=== PATIENT | female | born 1965 | race Caucasian/White ===

== ENCOUNTER 2019-08-31 14:47 | Emergency (ER) | payer BC, SELFPAY ==
--- NOTE | ~2019-08-31 | XR_ITS ---
EXAMINATION: XR chest 2V 08/31/2019 15:47 INDICATION: Chest pain with inspiration PROCEDURE: 2 view chest COMPARISON: No prior studies for comparison. FINDINGS: The lungs are clear. The cardiomediastinal silhouette is within normal limits. There are no pleural effusions. There is no pneumothorax suspected. IMPRESSION: 1: NO ACUTE CARDIOPULMONARY DISEASE. Reviewed, dictated and finalized at location A.
[2019-08-31 14:51] VITALS: BP 158/90; PULSE 84; RESP 20; TEMP 36.7; O2SAT 100
--- NOTE | 2019-08-31 14:56 | ECG_ITS ---
Measurements Intervals [place] Rate: 89 P: 55 PA: 163 QRS: 9 QRSD: 78 T: 38 QT: 334 QTc: 407 Interpretive Statements SINUS RHYTHM BASELINE ARTIFACT- I, II, AVR, AVL, AVF NORMAL ECG Electronically Signed On 08-31-2019 16:44:13 CDT by Fredy Zavala D.O.
[2019-08-31] MEDS: ASPIRIN 81 MG CHEWABLE TABLET 324 MG PO (15:00)
--- NOTE | 2019-08-31 15:02 | ED.CHESTPAIN ---
HPI - Chest Pain General Chief Complaint: Chest Pain Stated Complaint: Chest Pain Time Seen by Provider: 08/31/19 14:50 Source: patient Mode of arrival: ambulatory Limitations: no limitations History of Present Illness HPI narrative: Patient is a 54-year-old female who presents for evaluation of chest pain. Pain began this morning when the patient awakened, described as a pressure over her chest, worse with deep inspiration. Patient has some mild nausea and shortness of breath that has now resolved. Actually, patient denies any chest pain currently in the room. Patient does report some mild right shoulder pain and pain in her right breast that is also resolved at this time. No shortness of breath at time of assessment. No fever, no cough, no lower extremity swelling, edema or rashes. No history of cardiac disease, hypertension or hyperlipidemia. No family history of heart attack. Patient is not a smoker. Related Data Home Medications Medication Instructions Recorded Confirmed No Home Medications 08/31/19 08/31/19 Allergies Allergy/AdvReac Type Severity Reaction Status Date / Time No Known Allergies Allergy Verified 08/31/19 14:55 Review of Systems Review of Systems: Narrative: CONSTITUTIONAL: Denies fever CARDIOVASCULAR: Denies chest pain currently RESPIRATORY: Denies cough or dyspnea. GASTROINTESTINAL: Denies abdominal pain SKIN: Denies rash MUSCULOSKELETAL: Denies back pain NEUROLOGIC: Denies headache PMFSH Past Medical History Medical History (Updated 08/31/19 @ 15:12 by Yadira Price MD) No pertinent past medical history Surgical History Surgical History (Updated 08/31/19 @ 15:12 by Yadira Price MD) H/O section S/P cholecystectomy Social History Social History (Updated 08/31/19 @ 15:12 by Yadira Price MD) Smoking status: Never smoker Alcohol intake: never Substance use: never Living arrangements: with family Gender identity (if verbalized by the patient): Female Exam Narrative: Exam Narrative: GENERAL: Awake, alert, conversant HEAD: Normocephalic, atraumatic. EYES: PERRLA and EOMI. ENT: Nares clear, no rhinorrhea or epistaxis. Mucous membranes moist. NECK: Supple. CHEST: No respiratory distress, breathing even and non labored, mild right chest point tenderness HEART: Regular rate, sinus rhythm ABDOMEN:Non distended, non tender EXTREMITIES: Normal range of motion. No edema. SKIN: Warm, dry, no rash. NEURO:No focal deficits. Alert and oriented x3 Course Vital Signs Vital signs: Vital Signs Temperature 36.7 C 08/31/19 14:51 Pulse Rate 84 08/31/19 14:51 Respiratory Rate 20 08/31/19 14:51 Blood Pressure 158/90 H 08/31/19 14:51 Pulse Oximetry 100 08/31/19 14:51 Temperature 36.7 C 08/31/19 14:51 Pulse Rate 80 08/31/19 17:39 Respiratory Rate 08/31/19 17:39 Blood Pressure 120/89 08/31/19 17:39 Pulse Oximetry 99 08/31/19 17:39 MDM - Chest Pain MDM Narrative Medical decision making narrative: Patient's EKG and labs are without significant high risk changes. Cardiac risk factors reviewed. Patient is felt low risk for ACS and reasonable for further risk stratification testing as an outpatient. Pain was not sudden or maximal or onset without tearing or ripping quality. No other signs or symptoms to suggest aortic dissection. A low risk well's criteria is noted, PE is felt to be unlikely. No pneumonia seen on evaluation today. Patient is felt to be a reasonable candidate for continued evaluation as an outpatient. Differential Diagnosis Differential diagnosis: Likely stable angina, unstable angina pectoris, atypical chest pain and chest pain Lab Data Attestation: I reviewed the patient's lab results. Result diagrams: 08/31/19 15:29 08/31/19 15:29 Labs: Lab Results 08/31/19 08/31/19 08/31/19 Range/Units 15: 15:29 15:29 WBC 6.0 (4.5-10.0) K/mm3 RBC 4.47 (4.2-5.4) M/mm3
[2019-08-31 15:31] VITALS: BP 139/95; PULSE 77; RESP 20; O2SAT 96
[2019-08-31 15:39] LABS: Basophils Absolute Auto 0.1 K/mm3 (0.0-0.1); Eosinophils Absolute Auto 0.1 K/mm3 (0-0.3); Eosinophils Percent Auto 0.8 % (0-4.4); Hematocrit 41.6 % (37.0-47.0); Hemoglobin 13.6 g/dL (12.0-15.0); Immature Granulocyte Absolute 0.01 K/mm3 (0.00-0.031); Immature Granulocyte Percent A 0.2 % (0-0.5); Lymphocytes Absolute Auto 1.58 K/mm3 (0.9-3.2); Lymphocytes Percent Auto 26.3 % (18.3-44.2); Mean Corpuscular HGB Conc 32.7 g/dl (32-36); Mean Corpuscular Hemoglobin 30.4 pg (26-34); Mean Corpuscular Volume 93.1 fl (80-100); Mean Platelet Volume 9.8 fl (7.4-10.4); Monocytes Absolute Auto 0.5 K/mm3 (0.1-0.6); Monocytes Percent Auto 8.3 % (2.6-8.5); Neutrophils Absolute Auto 3.8 K/mm3 (1.3-6.7); Neutrophils Percent Auto 63.4 % (45.5-73.1); Platelet Count Result 283 k/mm3 (150-375); Red Blood Count 4.47 M/mm3 (4.2-5.4); Red Cell Distribution Width 12.8 % (11.5-14.5)
[2019-08-31 15:51] LABS: Prothrombin Time 13.3 Seconds (11.1-14.7)
[2019-08-31 15:52] LABS: Partial Thromboplastin Time 32.9 SECONDS (22.3-36.8)
[2019-08-31 15:54] LABS: Blood Urea Nitrogen 8 mg/dL (7-17); Calcium 10.3 mg/dL (8.4-10.2); Carbon Dioxide 27 mmol/L (22-30); Chloride 104 mmol/L (98-107); Estimated CRCL calculation 65 ml/min; Estimated Glomerular Filt Rate > 60; Glucose 95 mg/dL (65-105); Potassium 4.2 mmol/L (3.4-5.0); Sodium 138 mmol/L (137-145)
[2019-08-31 16:04] LABS: Troponin I < 0.012 ng/mL (0.000-0.034)
[2019-08-31 17:33] LABS: D Dimer 0.45 ug/mL (<0.48)
[2019-08-31 17:39] VITALS: BP 120/89; PULSE 80; RESP 20; O2SAT 99
[2019-08-31 18:43] LABS: Troponin I < 0.012 ng/mL (0.000-0.034)
[2019-08-31 19:23] VITALS: BP 128/70; PULSE 80; RESP 20; TEMP 36.7; O2SAT 99
== END 2019-08-31 19:24 | disposition home or self-care (01) ==
PROVIDERS: Emergency Provider Emergency Medicine
DX: R07.89 Other chest pain (principal)
CPT/HCPCS: 36415; 71046; 80048; 84484; 85025; 85380; 85610; 85730; 93005; 99284; A9270

== ENCOUNTER 2024-08-28 08:13 | Emergency (ER) | payer OTHER, SELFPAY ==
--- NOTE | ~2024-08-28 | CT_ITS ---
CLINICAL INDICATION: Right flank pain COMPARISON: None TECHNIQUE: Multiple contiguous axial images of the abdomen and pelvis were performed without the admi nistration of intravenous contrast The dose-length product (DLP) was 1113 mGy-cm. Automated exposure control and iterative reconstruction technique were employed. FINDINGS/OBSERVATIONS: Visualized lower thorax: The bilateral lung bases are clear. The heart is of normal size, without pericardial effusion. Small hiatal hernia is present. Liver: Innumerable cystic foci within the liver, markedly distorting the liver contour. The liver is enlarged measuring 22 cm in longitudinal dimension. Gallbladder and biliary system: The gallbladder is surgically absent. Pancreas: Limited evaluation of the pancreas secondary to the lack of intravenous contrast. Spleen: The spleen demonstrates homogeneous attenuation and is not enlarged. Kidneys: Global enlargement of the right kidney with moderate hydronephrosis and hydroureter extendin g to the right UVJ where a 6 mm obstructing calculus is identified. The left kidney is unremarkable. Adrenal glands: Unremarkable. Gastrointestinal tract: Unremarkable Appendix: The appendix is not definitively visualized. However, no pericecal inflammatory change is identified suggest the presence of acute appendicitis. Vasculature: Unremarkable. Lymph nodes: Limited evaluation without intravenous contrast. Pelvic structures: The bladder is decompressed. The uterus is anteverted and anteflexed, and otherwise unremarkable. Body wall and musculoskeletal: Small fat-containing umbilical hernia. No significant degenerative disease within the lower thoracic or lumbosacral spine. IMPRESSION: Right-sided hydroureteronephrosis secondary to a 6 mm calculus within the right UVJ. Innumerable cysts within the liver, and hepatomegaly. Reviewed, dictated and finalized at location A.
--- NOTE | ~2024-08-28 | XR_ITS ---
Exam: Abdomen 1V HISTORY: Kidney stone, right UVJ COMPARISON: Reference is made to a CT examination of the abdomen and pelvis, performed approximately 1 hour earlier TECHNIQUE: Supine images of the abdomen FINDINGS: Bowel gas pattern is non-obstructive. There is no free air or deep sulci. Redemonstration of a 6 mm calculus within the right hemipelvis, presumably at the level of the right UVJ. Lung bases are unremarkable. Bones and soft tissues are unremarkable. IMPRESSION: Nonspecific, nonobstructive bowel gas pattern. 6 mm calculus within the right hemipelvis, as detailed above. Reviewed, dictated and finalized at location A.
--- OUTSIDE RECORDS SUMMARY | 2024-08-28 08:15 | XMS_ITS | Clinical Summary ---
Author Organization [facility] [employer] Address [address] [place] [address] Care Team Providers Care Tax Staff Accountant Name Role Phone Unavailable Primary Care Provider Unavailabl e Source Comments [facility],non-owned Affiliates and Associated Physician Practices is amultiple site organization consisting of ambulatory clinics and hospital sitesin [place], [place], [place] and [place]. This disclosure is being madepursuant to the Care Everywhere program and may not contain all information available regarding this patient. Last updated 17.[facility] [employer] Allergies Active Allergy Reactions Criticality Noted Date Comments Morphine Itching High 03/03/2023 Medications * Be aware that medications may not be up to date on this document. Alwaysverify current medications with the patient. No known medications Social History Tobacco Use Types Packs/Day Years Used Date Smoking Tobacco: Never Tobacco Cessation:Counseling Given: Not Answered Alcohol Use Standard Drinks/Week Comments Yes 0 (1 standard drink = 0.6 oz pur e alcohol) socially Comments No Sex and Gender Information Value Date Recorded Sex Assigned at Female 06/14/2023 10:53 AM CDT Legal Sex Female 8:25 AM CDT Gender Identity Female 06/14/2023 10:53 AM CDT Sexual Orientation Choose not to disclose 2023 10:53 AM CDT Last Filed Vital Signs Vital Sign Reading Time Taken Comments Blood Pressure 136/89 03/23/2023 10:37 AM SWITCHBOARD WIRER Pulse 88 03/23/2023 10:37 AM SWITCHBOARD WIRER Temperature 36.2 C (97.1 F) 03/23/2023 10:37 AM SWITCHBOARD WIRER Respiratory Rate 47 03/23/2023 10:37 AM SWITCHBOARD WIRER Oxygen Saturation 100% 03/23/2023 10:37 AM SWITCHBOARD WIRER Inhaled Oxygen Concentration - - Weight 81.5 kg (179 lb 9.6 oz) 03/23/2023 10:37 AM SWITCHBOARD WIRER Height 152.4 cm (5') 03/23/2023 10:37 AM SWITCHBOARD WIRER Body Mass Index 35.08 03/23/2023 10:37 AM SWITCHBOARD WIRER Plan of Treatment Health Maintenance Due Date Last Done Comments COLOGUARD (AGES 45-75) - COL ON CA SCREENING 1963 COLON MONITORING 1963 COLONOSCOPY - COLON CA SCREENING 1963 CT COLONOGRAPHY - COLON CA SCREENING 1963 Colorectal Cancer Screening 1963 FIT - COLON CA SCREENING 1963 FLEX SIG - COLON CA SCREENING 1963 LIPID TESTING 1963 MAMMOGRAM 1963 PAP SMEAR 1963 HIV SCREENING 1978 HEPATITIS C SCREENING 02/02/1981 DTAP/TDAP/TD VACCINES (1 - Tdap) 1982 PNEUMOCOCCAL VACCINE 50+ (1 of 1 - PCV) 2013 ZOSTER VACCINE (1 of 2) 2013 COVID-19 VACCINE ( - 2023-2 5 season) 2023 DEPRESSION SCREENING 04/05/2024 INFLUENZA VACCINE (Season Ended) 2024 SCREENING FOR DIABETES 03/03/2026 03/03/2023 Respiratory Syncytial Virus (RSV) Vaccine Pt: or over 60 yrs (1 - 1-dose 75+ series) 2038 HEPATITIS B VACCINE Aged Out No longe r eligible based on patient's age to complete this topic HIB VACCINE Aged Out No longer eligi ble based on patient's age to complete this topic HPV VACCINE Aged Out No longer eligi ble based on patient's age to complete this topic MENINGOCOCCAL (Group B) VACC INE SHARED DECISION-MAKING Aged Out No longer eligibl e based on patient's age to complete this topic MENINGOCOCCAL GROUPS A/C/Y/W VACCINE Aged Out No longer eligible b ased on patient's age to complete this topic Procedures Procedure Name Priority Date/Time Associated Diagnosis Comments BASIC METABOLIC PANEL (CALCIUM TOTAL) Routine 03/03/2023 1:19 PM [facility] Hepatic cyst from Last 3 Months or Most Recently Relevant to Health Maintenance Results * (ABNORMAL) BASIC METABOLIC PANEL (CALCIUM TOTAL) (03/03/2023 1:19 PM [facility]) BUN 10 7 - 26 mg/dL 03/03/2023 2:02 PM [facility] Creatinine 0.83 0.56 - 0.96 mg/dL 03/03/2023 2:02 PM [facility] Sodium 140 136 - 145 mmol/L 03/03/2023 2:02 PM [facility] Potassium 4.0 3.5 - 4.5 mmol/L 03/03/2023 2:02 PM [facility] Chloride 108(H) 98 - 107 mmol/L 03/03/2023 2:02 PM [facility] CO2 24 22 - 29 mmol/L 03/03/2023 2:02 PM [facility] Glucose 89 70 - 115 mg/dL 03/03/2023 2:02 PM [facility] Calcium 10.0 8.4 - 10.2 mg/dL 03/03/2023 2:02 PM [facility] Anion Gap 8 6 - 16 03/03/2023 2:02 PM [facility] BUN/Creatinine Ratio 12 7 - 23 03/03/2023 2:02 PM [facility] Osmolality Calculated 289 275 - 295 mOsm/kg 03/03/2023 2:02 PM [facility] eGFR by CKD-EPI 81(L) >=90 mL/min/1.7 3 m2 03/03/2023 2:02 PM [facility] Blood BLOOD SPECIMEN / Unknown Venipuncture / Unknown 03/03/2023 1:19 PM SWITCHBOARD WIRER 03/03/2023 1:28 PM [facility] us Stacia Gutierrez MD LAB - CHEMISTRY ORDERAB LES Final Result [facility] [address] [place] [address], [facility] [phone] from Last 3 Months or Most Recently Relevant to Health Maintenance [place] [address] ANTHEM
--- OUTSIDE RECORDS SUMMARY | 2024-08-28 08:15 | XMS_ITS | Continuity of Care Document ---
Author Organization [facility] Address [address] [place] [id number] Phone Care Team Providers Care Surface Grinding Machine Hand Name Role Phone July Villarreal Unavailable Unavailable Allergies, Adverse Reactions, Alerts Substance Reaction Status Criticality No Known Allergies Active No Inform ation Medications Medication Instructions Dosage Effective Dates (start - stop) Status Comments permethrin 5 % topical cream apply by topical route (thoroughly massage into skin from head to soles of feet) once leave on for 8-14 hr, then remove by thorough washing 0.00 - Active triamcinolone acetonide 0.5 % topical cream apply by topical route 2 times every day a thin layer to the affected area(s) 0.00 - Active Procedures Procedure Date ADMIN INJ THERAPUTIC IM/SUBQ Methylprednisolone 40 MG inj Dexamethasone sodium phos OFFICE/OUTPATIENT VISIT, [facility] Advance Directives Directive Yes / No Effective Date File Name Other Directive No N/A N/A WARNING:The information contained in this section is historical and is provided for information only and does not constitute a legal document or any assurance that the information is still accurate. Please verify the information with the land of the legal document before using it for clinical purposes. Encounters Encounter Description Practice Location Reason(s) For Visit Diagnoses Date Provider Providers Copied on Encounter OFFICE/OUTPAT IENT VISIT, [facility], [address] [place] [address], [address], [place] tel:[phone] *[facility] Urgent Care rash (chief complaint) Body mass index [BMI] 34.0-34.9, adultRash and other nonspecific skin eruption Shawn Mcdowell. [address] [place], [address], [place]. tel:[phone] Family History Family Member Type Diagnosis Age At Onset No Information Payers Payer name Insurance type Covered alliance party ID Authortravis joyner(s) No Information Social History Type Description Quantity Date Captured Comments Alcohol Use Details Unknown Caffeine Use Details Unknown Tobacco Use Status Current non-smoker Smoking Status Never smoker Non-Smoking Tobacco Use Details : No Details Available : No Details Available Sex Female Gender Identity Female Vital Signs Date / Time: Height Weight BMI Pulse Rate Blood Pressure Temperature Respiratory Rate Body Surface Area Head Circumference Head Circ. Percentile [place]./[place]. Percentile BMI percentile Pulse Ox Inhaled Ox 10:50 AM 60.00 in 80.467 kg (177.40 lbs) 34.6 5 kg/m eter (2) 74 /min 135/74 mm[Hg] 97.20 F 18 /min 1.85 meter(2) 96 % Chief Complaint And Reason For Visit From encounter dated '12/02/2022 10:49'. rash (chief complaint). Description: Onset 3 days ago. Location is ENTIRE BODY. The patient describes it as itchy. Denies aggravating factors. Denies relieving factors. Pertinent negatives include diarrhea, fatigue, fever, headache, joint symptoms, kerion(s) in scalp, pain, sore throat, urticaria and vomiting. Reason For Referral Reason For Referral No Information Plan Of Treatment Date Type Action Status Goal Dietary management education , guidance, and counseling completed History Of Present Illness Encounter Date Complaint History Of Prese nt Illness rash Onset 3 days ago . Location is ENTIRE BODY. The patient describes it as itchy. Denies aggravating factors. Denies relieving factors. Pertinent negatives include diarrhea, fatigue, fever, headache, joint symptoms, kerion(s) in scalp, pain, sore throat, urticaria and vomiting. Functional Status Date Functional Assessmen t No Information Instructions Date Instruction Additional Infor mation low suspension for s cabies, but pt would like treated as such use lotion from head to bottom of feet, go to bed, sleep at least 8 hours, shower, wash all bed clothes in hot soapy water. Repeat treatment in 10 days. Discussion will continue with itch several days after treatment. Follow up if not improved. Related to Rash and other nonspecific skin eruption Giving encouragement to exercise Related to Body mass index [BMI] 34.0-34.9, adult Dietary management e ducation, guidance, and counseling Related to Body mass index [BMI] 34.0-34.9, adult Assessments Type Assessment Date assessment Body mass index [BMI] 34.0-34.9, adult assessment Rash and other nonspecific skin eruption Mental Status Date Cognitive Assessment Orientation - [place] ed to time, place, person, situation. Patient Care Teams Name Effective Dates (start - stop) Status Members No Information
--- OUTSIDE RECORDS SUMMARY | 2024-08-28 08:15 | XMS_ITS | Data Portability ---
Author Organization [place] - [email or web address] [employer] Address [address] [place] [address] Assessment No assessment recorded. Plan of Treatment Reminders Order Date Submit Date Provider Last Modified By Organization Details Last Modified Time Details Appointments None recorded. Lab None recorded. Referral None recorded. Procedures None recorded. Surgeries None recorded. Imaging None recorded. Medication Orders Zithromax Z-Louis 250 mg tablet 2023 [id number] [employer], [address] [place], [address], 4 13:14:16 Patient TargetsNo targets recorded. Patient Instructions Encounter Date Encounter Id Patient Instructions Last Modified By Organization Details Last Modified Time 03/19/2024 [id number] Start medication s today Drink plenty of fluids May take OTC cough/cold medications as needed May take benadryl 25-50 mg every 6 hours for fluid in ears May alternate motrin with tylenol as needed for fever and pain Get plenty of rest Follow up PRN Notify clinic of any questions or concerns [email or web address] Not available 03/19/2024 13:27:44 Reason for Referral None Reported. Medical Equipment None Reported. Medications Name Sig Start Date Stop Date Status Note LastModified by Organization Details LastModified Time Zithromax Z-Louis 250 mg tablet TAKE 2 TABLETS (500 MG) BY ORAL ROUTE ONCE DAILY FOR 1 DAY THEN 1 TABLET (250 MG) BY ORAL ROUTE ONCE DAILY FOR 4 DAYS 024 active Not Available Not Available Not Avai lable Vitals Date Recorded Body height Body mass index (BMI) Body weight Body temperature Heart rate Respiratory rate Oxygen saturation Oxygen saturation in Arterial blood by Pulse oximetry Systolic And Diastolic Provider Name and Address Organization Details Last Updated DateTime 4 152.4 cm 34.4 kg/m2 17079.2 6 g 99 [degF] 94 /min 14 /min 97 % 97 % 140/82 mm[Hg] Ginger Cortés [employer] [facility] 4 13:02:01 Social History None recorded. Functional Status None recorded. Mental Status None recorded. Family History Nothing Reported. Medical History No medical history recorded. Gynecological HistoryNo gynecological history recorded. Obstetrics History GPAL:G 0 P 0 0 0 0 Past Encounters Encounter ID Performer Location Encounter Start Date Encounter Closed Date Diagnosis/Indication Diagnosis SNOMED-CT Code Diagnosis ICD10 Code Diagnosis Note [id number] -Urgent [address] [place] [address] 03/19/2024 12:54:15 03/20/2024 15:28:31 Acute upper respiratory infection 18630159 J06.9 Start medication s todayDrink plenty of fluidsMay take OTC cough/cold medication s as neededMay take benadryl 25-50 mg every 6 hours for fluid in earsMay alternate motrin with tylenol as needed for fever and painGet plenty of restFollow up PRNNotify clinic of any questions or concerns Health Concerns Section Related Observation LastModified by Organization Detai ls LastModified Time None Recorded Concern Status LastModified by Organization Details LastModified Time None Recorded Advance Directives Directive None Recorded Payers Encounter Date Sequence Insurance Name Policy Number Policy Kaminski Covered Member ID Kaminski Member ID Guarantor Name 03/19/2024 1 [facility] [id number] Ivet Pascual [id number] Ivet Pascual Notes Date Note Type Note Provider Name and Address Organization Details Recorded Time 03/19/2024 text/html Upper Respirator y SymptomsReported bypatient.Location:hea d; throat Quality:colored phlegm;congested Severity:moderate Onset/Timing:sudden Context:no sick contacts; no foreign travel; non-smoker Associated Symptoms:no shortness of breath; no wheezing; no change in number of pillows needed to sleep at night; no sweats; no significant weight gain; no significant weight loss; no morning cough; no vomiting; no diarrhea; no rash; no nausea;green sputum(nasal congestion);fever;sore throat Patient is a 59 year old female who presents to clinic for sore throat, congestion and headache x [address], [place], [address], [place] - [employer] [facility] 03/19/2024 13:30:51 OBGyn Episode No OBEpisode recorded.
[2024-08-28 08:27] VITALS: BP 172/96; PULSE 76; RESP 16; TEMP 36.3; O2SAT 99
[2024-08-28 08:54] LABS: Basophils Absolute Auto 0.1 K/mm3 (0.0-0.1); Basophils Percent Auto 0.9 % (0.2-1.2); Eosinophils Absolute Auto 0.1 K/mm3 (0-0.3); Hematocrit 43.3 % (37.0-47.0); Hemoglobin 13.9 g/dL (12.0-15.0); Immature Granulocyte Absolute 0.03 K/mm3 (0.00-0.031); Immature Granulocyte Percent A 0.4 % (0-0.5); Lymphocytes Percent Auto 25.8 % (18.3-44.2); Mean Corpuscular HGB Conc 32.1 g/dl (32-36); Mean Corpuscular Volume 96.7 fl (80-100); Mean Platelet Volume 9.3 fl (7.4-10.4); Monocytes Absolute Auto 0.5 K/mm3 (0.1-0.6); Monocytes Percent Auto 7.4 % (2.6-8.5); Neutrophils Absolute Auto 4.5 K/mm3 (1.3-6.7); Neutrophils Percent Auto 64.5 % (45.5-73.1); Platelet Count Result 331 k/mm3 (150-375); Red Blood Count 4.48 M/mm3 (4.2-5.4)
[2024-08-28] MEDS: LACTATED RINGERS 1,000 ML 999 ML IV CONT ×2 (09:04→11:27)
[2024-08-28] MEDS: ONDANSETRON INJ 4 MG/2 ML VIAL IV PUSH (09:04)
[2024-08-28 09:06] LABS: Alanine Aminotransferase 21 U/L (6-35); Albumin Level 4.5 g/dL (3.5-5.1); Alkaline Phosphatase 69 U/L (38-126); Anion Gap 7 mmol/L (4-12); Aspartate Amino Transferase 27 U/L (14-36); Bilirubin,Total 0.6 mg/dL (0.2-1.3); Blood Urea Nitrogen 12 mg/dL (7-17); Calcium 9.9 mg/dL (8.4-10.2); Carbon Dioxide 29 mmol/L (22-30); Chloride 102 mmol/L (98-107); Estimated CRCL calculation 59 ml/min; Estimated Glomerular Filt Rate > 60; Glucose 133 mg/dL (65-110); Potassium 3.1 mmol/L (3.4-5.0); Sodium 138 mmol/L (137-145)
[2024-08-28] MEDS: HYDROmorphone HCL INJ (*CRX) 2 MG/ML VIAL 1 MG IV PUSH (09:06)
--- OUTSIDE RECORDS SUMMARY | 2024-08-28 09:06 | XMS_ITS | Clinical Summary ---
Author Organization [facility] [employer] Address [address] [place] [address] Care Team Providers Care Registered Occupational Therapist Name Role Phone Unavailable Primary Care Provider Unavailabl e Source Comments [facility],non-owned Affiliates and Associated Physician Practices is amultiple site organization consisting of ambulatory clinics and hospital sitesin [place], [place], [place] and [place]. This disclosure is being madepursuant to the Care Everywhere program and may not contain all information available regarding this patient. Last updated 17.[facility] [employer] Allergies Active Allergy Reactions Criticality Noted Date [...] Comments Blood Pressure 136/89 03/23/2023 10:37 AM FINANCIAL HEALTH COUNSELOR Pulse 88 03/23/2023 10:37 AM FINANCIAL HEALTH COUNSELOR Temperature 36.2 C (97.1 F) 03/23/2023 10:37 AM FINANCIAL HEALTH COUNSELOR Respiratory Rate 47 03/23/2023 10:37 AM FINANCIAL HEALTH COUNSELOR Oxygen Saturation 100% 03/23/2023 10:37 AM FINANCIAL HEALTH COUNSELOR Inhaled Oxygen Concentration - - Weight 81.5 kg (179 lb 9.6 oz) 03/23/2023 10:37 AM FINANCIAL HEALTH COUNSELOR Height 152.4 cm (5') 03/23/2023 10:37 AM FINANCIAL HEALTH COUNSELOR Body Mass Index 35.08 03/23/2023 10:37 AM FINANCIAL HEALTH COUNSELOR Plan of Treatment Health Maintenance Due Date [...] PANEL (CALCIUM TOTAL) Routine 03/03/2023 1:19 PM [facility] Hepatic cyst from Last 3 Months or Most Recently Relevant to Health Maintenance Results * (ABNORMAL) BASIC METABOLIC PANEL (CALCIUM TOTAL) (03/03/2023 1:19 PM [facility]) BUN 10 7 - 26 mg/dL 03/03/2023 2:02 PM [facility] Creatinine 0.83 0.56 - 0.96 mg/dL 03/03/2023 2:02 PM [facility] Sodium 140 136 - 145 mmol/L 03/03/2023 2:02 PM [facility] Potassium 4.0 3.5 - 4.5 mmol/L 03/03/2023 2:02 PM [facility] Chloride 108(H) 98 - 107 mmol/L 03/03/2023 2:02 PM [facility] CO2 24 22 - 29 mmol/L 03/03/2023 2:02 PM [facility] Glucose 89 70 - 115 mg/dL 03/03/2023 2:02 PM [facility] Calcium 10.0 8.4 - 10.2 mg/dL 03/03/2023 2:02 PM [facility] Anion Gap 8 6 - 16 03/03/2023 2:02 PM [facility] BUN/Creatinine Ratio 12 7 - 23 03/03/2023 2:02 PM [facility] Osmolality Calculated 289 275 - 295 mOsm/kg 03/03/2023 2:02 PM [facility] eGFR by CKD-EPI 81(L) >=90 mL/min/1.7 3 m2 03/03/2023 2:02 PM [facility] Blood BLOOD SPECIMEN / Unknown Venipuncture / Unknown 03/03/2023 1:19 PM FINANCIAL HEALTH COUNSELOR 03/03/2023 1:28 PM [facility] us Stacia Gutierrez MD LAB - CHEMISTRY ORDERAB LES Final Result [facility] [address] [place] [address], [facility] [phone] from Last 3 Months or Most Recently Relevant to Health Maintenance [place] [address] ANTHEM
--- OUTSIDE RECORDS SUMMARY | 2024-08-28 09:06 | XMS_ITS | Continuity of Care Document ---
Author Organization [facility] Address [address] [place] [address] Phone Care Team Providers Care Railroad Crane Operator Name Role Phone July Villarreal Unavailable Unavailable [...] MG inj Dexamethasone sodium phos OFFICE/OUTPATIENT VISIT, [facility] Advance Directives Directive Yes / No Effective [...] Providers Copied on Encounter OFFICE/OUTPAT IENT VISIT, [facility], [address] [place] [address], [address], [place] tel:[phone] *[facility] Urgent Care rash (chief complaint) Body mass index [BMI] 34.0-34.9, adultRash and other nonspecific skin eruption Shawn Mcdowell. [address] [place], [address], [place]. tel:[phone] Family History Family Member Type Diagnosis Age At Onset No Information Payers Payer name Insurance type Covered libertarian ID Authortravis joyner(s) No Information Social History [...] Mental Status Date Cognitive Assessment Orientation - [place] ed to time, place, person, situation. Patient Care Teams Name Effective Dates (start - stop) Status Members No Information
--- NOTE | 2024-08-28 09:42 | ED.GENADULT ---
HPI - General Adult General Chief complaint: Back Pain/Injury Stated complaint: right flank pain Time Seen by Provider: 08/28/24 08:45 History of Present Illness HPI narrative: 59-year-old female presenting to the emergency department for evaluation for acute onset of right flank pain and right lower quadrant pain. Patient states she woke up approximately 530 to urinate and had onset of the symptoms. Patient felt that the pain was radiating from her right kidney down to her right lower quadrant. Patient states the pain was significant. Patient denies having any burning with urination. Patient has no prior history of kidney stones. Patient was provided medication for pain control prior to examination she reports this did help significantly. Patient does have prior history of cholecystectomy, liver cysts and x3. Related Data Home Medications ?Medication ?Instructions ?Recorded ?Confirmed ?Last Taken ?Type multivitamin 1 tablet PO DAILY 08/02/23 11/25/23 Unknown History Allergies Allergy/AdvReac Type Severity Reaction Status Date / Time No Known Allergies Allergy Verified 08/28/24 08:19 Review of Systems Review of Systems: All systems reviewed & are unremarkable except as noted in HPI and below PMFSH Past Medical History Medical History BPV (benign positional vertigo) Dizziness Liver cyst No pertinent past medical history Surgical History Surgical History H/O section S/P cholecystectomy Social History Social History Smoking status: Never smoker Alcohol intake: current Alcohol use details: social Substance use: never Lack of Transportation: No Lack of Food: Never True Current Housing: I Have Housing Concerned About Future Housing: No Difficulty Paying Gas/Electric Bills: No Difficulty Paying for Meds: No Currently Unemployed: No Education: High School Diploma/GED Difficulty w/ Childcare or Family Care: No Living arrangements: with family Occupation/Education: occupation Gender identity (if verbalized by the patient): Female Exam Narrative: APPEARANCE: Uncomfortable appearing HEAD: normocephalic, atraumatic. EYES: PERRLA/EOMI, conjunctivae clear. NOSE: Normal no drainage EARS:TMS clear with good light reflex. THROAT: Pharynx clear, no exudate. NECK: Supple. No adenopathy, no masses. RESPIRATORY: Airway patent, respirations nonlabored. Clear to auscultation bilaterally, no rales, rhonchi, wheezing. CARDIOVASCULAR: Regular rate and rhythm without murmurs rubs or gallops. ABDOMINAL: No significant reproducible tenderness to palpation of right CVA, right lower quadrant. This is the stated site of her pain patient is not worsened with palpation MUSCULOSKELETAL: Moves all extremities. Strength/ROM intact, No edema, No calf tenderness. NEURO: Alert. Cranial nerves II through XII intact. Grossly intact SKIN: Warm, dry. Normal Color Course Vital Signs Vital signs: Vital Signs Temperature 97.3 F L 08/28/24 08:27 Pulse Rate 76 08/28/24 08:27 Respiratory Rate 16 08/28/24 08:27 Blood Pressure 172/96 H 08/28/24 08:27 Pulse Oximetry 99 08/28/24 08:27 Temperature 97.3 F L 08/28/24 08:27 Pulse Rate 72 08/28/24 11:32 Respiratory Rate 20 08/28/24 11:32 Blood Pressure 135/78 08/28/24 11:32 Pulse Oximetry 97 08/28/24 11:32 Medical Decision Making MDM Narrative Medical decision making narrative: 59-year-old female presents to the emergency department for evaluation for right flank pain. Patient is currently afebrile with no leukocytosis, hemoglobin of 13.9. Patient does have a potassium of 3.1 with no other acute abnormalities on her CMP. Patient has not yet provided a urine but CT without contrast is being ordered due to strong clinical indication of right-sided ureteral calculi. CT scan does show a 6 mm ureteral calculi. Urine was positive for hematuria but negative for underlying infection. KUB was ordered. On re-evaluation patient states he does feel improved. Patient family were updated on the results of the workup and plan for discharge for home. All questions concerns were addressed. Patient will be discharged with medications for nausea control pain control and follow-up with Urology. Differential Diagnosis Differential Diagnosis: UTI, cholecystitis, colitis, diverticulitis, ureteral calculi Vital Signs Vital Signs: Vital Signs Temperature 97.3 F L 08/28/24 08:27 Pulse Rate 76 08/28/24 08:27 Respiratory Rate 16 08/28/24 08:27 Blood Pressure 172/96 H 08/28/24 08:27 Pulse Oximetry 99 08/28/24 08:27 Temperature 97.3 F L 08/28/24 08:27 Pulse Rate 72 08/28/24 11:32 Respiratory Rate 20 08/28/24 11:32 Blood Pressure 135/78 08/28/24 11:32 Pulse Oximetry 97 08/28/24 11:32 Lab Data Lab results reviewed: Yes I reviewed the patient's lab results. 08/28/24 08:41 08/28/24 08:41 Labs: Lab Results 08/28/24 08/28/24 Range/Units 08:41 11:25 WBC 7.0 (4.5-10.0) K/mm3 RBC 4.48 (4.2-5.4) M/mm3 Hgb 13.9 (12.0-15.0) g/dL Hct 43.3 (37.0-47.0) % MCV 96.7 (80-100) fl MCH 31.0 (26-34) pg MCHC 32.1 (32-36) g/dl RDW 12.0 (11.5-14.5) % Plt Count 331 (150-375) k/mm3 MPV 9.3 (7.4-10.4) fl Immature Gran % (Auto) 0.4 (0-0.5) % Neut % (Auto) 64.5 (45.5-73.1) % Lymph % (Auto) 25.8 (18.3-44.2) % [place] % (Auto) 7.4 (2.6-8.5) % Eos % (Auto) 1.0 (0-4.4) % Baso % (Auto) 0.9 (0.2-1.2) % Lymph # (Auto) 1.80 (0.9-3.2) K/mm3 [place] # (Auto) 0.5 (0.1-0.6) K/mm3 Eos # (Auto) 0.1 (0-0.3) K/mm3 Baso # (Auto) 0.1 (0.0-0.1) K/mm3 Abs Immat Gran (auto) 0.03 (0.00-0.031) K/mm3 Absolute Neuts (auto) 4.5 (1.3-6.7) K/mm3 Absolute Nucleated RBC 0.000 (0.0-0.012) K/mm3 Nucleated RBC % 0.0 (0.0-0.2) % Sodium 138 (137-145) mmol/L Potassium 3.1 L (3.4-5.0) mmol/L Chloride 102 (98-107) mmol/L Carbon Dioxide 29 (22-30) mmol/L Anion Gap 7 (4-12) mmol/L BUN 12 (7-17) mg/dL Creatinine 0.81 (0.7-1.0) mg/dL Estim Creat Clear Calc 59 ml/min Estimated GFR > 60 (59 - ) Glucose 133 H (65-110) mg/dL Calcium 9.9 (8.4-10.2) mg/dL Total Bilirubin 0.6 (0.2-1.3) mg/dL AST 27 (14-36) U/L ALT 21 (6-35) U/L Alkaline Phosphatase 69 (38-126) U/L Total Protein 8.0 (6.3-8.2) g/dL Albumin 4.5 (3.5-5.1) g/dL Urine Color Dark yellow (Yellow) Urine Appearance Cloudy H (Clear) Urine pH 5.0 (5.0-9.0) Ur Specific [place] 1.030 (1.001-1.035) Urine Protein 1+ H (Negative) mg/dL Urine Glucose (UA) Negative (Negative) mg/dL Urine Ketones 1+ H (Negative) mg/dL Ur Blood (Man) Negative (Negative) Urine Nitrate Negative (Negative) Urine Bilirubin Negative (Negative) Urine Urobilinogen 0.2 (<2.0) mg/dL Add Ur Microanalysis Reviewed Leukocyte Esterase Rfl Negative (Negative) OBED/UL Urine RBC 3-5 H (0-2) /hpf Urine WBC 0-5 (0-3) /hpf Ur Squamous Epith Cells Occasional (Few) /hpf Urine Bacteria None seen /hpf Urine Casts 6-10 Imaging Data Radiologist's impression: Impressions Abdomen/Pelvis CT 08/28/24 10:36 IMPRESSION: Right-sided hydroureteronephrosis secondary to a 6 mm calculus within the right UVJ. Innumerable cysts within the liver, and hepatomegaly. Abdomen X-Ray 08/28/24 11:17 IMPRESSION: Nonspecific, nonobstructive bowel gas pattern. 6 mm calculus within the right hemipelvis, as detailed above. Discharge Plan Discharge Clinical Impression: Calculi, ureter Patient Disposition: Home Condition: Stable Instructions: Antibiotic Form, Kidney Stones (ED), How to Strain Your Urine (ED), Flank Pain (ED) Additional Instructions: Zofran as needed for nausea control. Flomax as directed to help you pass the stone. Ibuprofen for pain control. [place] as needed for additional pain control. Have close follow-up with your primary care physician and with Urology. If you have any worsening symptoms then please call or return to the emergency department. Patient Language: [place] Prescriptions: New hydrocodone-acetaminophen 5-325 mg tablet 1 tablet PO Q12H PRN (Reason: pain) Qty: 14 0RF tamsulosin [Flomax] 0.4 mg capsule 0.4 mg PO DAILY 14 Days Qty: 14 0RF ondansetron 4 mg tablet,disintegrating 4 mg PO Q8H PRN (Reason: nausea and vomiting) Qty: 14 0RF No Action azithromycin 250 mg tablet See Rx Instructions PO .COMPLEX Qty: 6 0RF Rx Instructions: take 500 mg today (day 1), then 250 mg for 4 days (days 2-5) PO multivitamin Tablet 1 tablet PO DAILY Follow-up/Referrals: Natalya Clark, CASSANDRA ARCHITECT-C [Primary Care Provider] - Bravo Resendiz MD [Physician] -
[2024-08-28] MEDS: KETOROLAC 15 MG/ML VIAL (*BKC) IV PUSH (11:27)
[2024-08-28] MEDS: TAMSULOSIN HCL 0.4 MG CAPSULE PO (11:27)
[2024-08-28 11:32] VITALS: BP 135/78; PULSE 72; RESP 20; O2SAT 97
[2024-08-28 11:49] LABS: Add Urine Microscopic? YES; Appearance Urine Cloudy (Clear); Bacteria Urine None Seen /hpf; Bilirubin Urine Negative (Negative); Blood Urine Negative (Negative); Color Urine Dark Yellow (Yellow); Glucose Urine UA Negative (Negative); Ketones Urine 1+ mg/dL (Negative); Leukocyte Esterase Ur Negative LEU/UL (Negative); Need Manual Microscopic Reviewed; Nitrate Urine Negative (Negative); Protein Urine 1+ mg/dL (Negative); Squamous Epithelial Cell Urine Occasional /hpf (Few); Urobilinogen Urine 0.2 mg/dL (<2.0); WBC Urine 0-5 /hpf (0-3)
== END 2024-08-28 12:30 | disposition home or self-care (01) ==
PROVIDERS: Emergency Provider Emergency Medicine; PCP Nurse Practitioner Family
DX: N13.2 Hydronephrosis with renal and ureteral calculous obstruction (principal); Z90.49 Acquired absence of other specified parts of digestive tract
CPT/HCPCS: 36415; 74018; 74176; 80053; 81001; 85025; 96361; 96374; 96375; 99284; A9270; J1171; J1885; J2405; J7120

== ENCOUNTER 2025-03-05 08:19 | Outpatient (CLI) | payer OTHER, SELFPAY ==
--- NOTE | ~2025-03-05 | NM_ITS ---
EXAMINATION: NM stress w perf spect multi DATE: 03/05/2025 12:28 INDICATION: Shortness of breath. Chest pain. TECHNIQUE: Rest images were obtained following intravenous administration of 10 mCi Tc99m tetrofosmin (Myoview). The patient performed an exercise activity. At peak exercise, 29.2 mCi Tc99m tetrofosmin (Myoview) was administered intravenously, and stress images were obtained. Data was reconstructed into short axis and horizontal and vertical long axis SPECT images. Gated SPECT images were also obtained. COMPARISON: None. FINDINGS: There is normal left ventricular perfusion without definite evidence of reversible or fixed perfusion abnormality to suggest ischemia or infarction. There is normal left ventricular chamber size, wall motion and ejection fraction. Left ventricular ejection fraction measures >70%. IMPRESSION: 1. Normal myocardial perfusion at rest and during stress. 2. Left ventricular ejection fraction measuring >70%. Reviewed, dictated and finalized at location A. FARMER
--- OUTSIDE RECORDS SUMMARY | 2025-03-05 08:35 | XMS_ITS | Clinical Summary ---
Author Organization [facility] [employer] Address [address] [place] [address] Care Team Providers Care Supervising Fire Marshal Name Role Phone Unavailable Primary Care Provider Unavailabl e Source Comments [facility],non-owned Affiliates and Associated Physician Practices is amultiple site organization consisting of ambulatory clinics and hospital sitesin [place], [place], [place] and [place]. This disclosure is being madepursuant to the Care Everywhere program and may not contain all information available regarding this patient. Last updated 17.[facility] [employer] Allergies Active Allergy Reactions Criticality Noted Date [...] Comments Blood Pressure 136/89 03/23/2023 10:37 AM [employer] Pulse 88 03/23/2023 10:37 AM [employer] Temperature 36.2 C (97.1 F) 03/23/2023 10:37 AM [employer] Respiratory Rate 47 03/23/2023 10:37 AM [employer] Oxygen Saturation 100% 03/23/2023 10:37 AM [employer] Inhaled Oxygen Concentration - - Weight 81.5 kg (179 lb 9.6 oz) 03/23/2023 10:37 AM [employer] Height 152.4 cm (5') 03/23/2023 10:37 AM [employer] Body Mass Index 35.08 03/23/2023 10:37 AM [employer] Plan of Treatment Health Maintenance Due Date Last Done Comments COLOGUARD (AGES 45-75) - COL ON CA SCREENING 1965 COLON MONITORING 1965 COLONOSCOPY - COLON CA SCREENING 1965 CT COLONOGRAPHY - COLON CA SCREENING 1965 Colorectal Cancer Screening 1965 FIT - COLON CA SCREENING 1965 FLEX SIG - COLON CA SCREENING 1965 LIPID TESTING 1965 MAMMOGRAM 1965 HIV SCREENING 1978 HEPATITIS C SCREENING 02/02/1981 DTAP/TDAP/TD VACCINES (1 - Tdap) 1982 Cervical Cancer Screening 02/08/1984 PAP SMEAR 02/08/1984 PAP with HPV 1993 PNEUMOCOCCAL VACCINE 50+ (1 of 1 - PCV) 2013 ZOSTER VACCINE (1 of 2) 2013 DEPRESSION SCREENING 04/05/2024 COVID-19 VACCINE (1 - 2024-2 6 season) 2024 INFLUENZA VACCINE (#1) 2024 SCREENING FOR DIABETES 03/03/2026 03/03/2023 Respiratory [...] PANEL (CALCIUM TOTAL) Routine 03/03/2023 1:19 PM [facility] Hepatic cyst from Last 3 Months or Most Recently Relevant to Health Maintenance Results * (ABNORMAL) BASIC METABOLIC PANEL (CALCIUM TOTAL) (03/03/2023 1:19 PM [facility]) BUN 10 7 - 26 mg/dL 03/03/2023 2:[address] [facility] Creatinine 0.83 0.56 - 0.96 mg/dL 03/03/2023 2:[address] [facility] Sodium 140 136 - 145 mmol/L 03/03/2023 2:[address] [facility] Potassium 4.0 3.5 - 4.5 mmol/L 03/03/2023 2:[address] [facility] Chloride 108(H) 98 - 107 mmol/L 03/03/2023 2:[address] [facility] CO2 24 22 - 29 mmol/L 03/03/2023 2:[address] [facility] Glucose 89 70 - 115 mg/dL 03/03/2023 2:[address] [facility] Calcium 10.0 8.4 - 10.2 mg/dL 03/03/2023 2:[address] [facility] Anion Gap 8 6 - 16 03/03/2023 2:[address] [facility] BUN/Creatinine Ratio 12 7 - 23 03/03/2023 2:[address] [facility] Osmolality Calculated 289 275 - 295 mOsm/kg 03/03/2023 2:[address] [facility] eGFR by CKD-EPI 81(L) >=90 mL/min/1.7 3 m2 03/03/2023 2:[address] [facility] Blood BLOOD SPECIMEN / Unknown Venipuncture / Unknown 03/03/2023 1:19 PM [employer] 03/03/2023 1:28 PM [facility] us Stacia Gutierrez MD LAB - CHEMISTRY ORDERAB LES Final Result [facility] [address] [place] [address], [facility] [phone] from Last 3 Months or Most Recently Relevant to Health Maintenance [place] [address] ANTHEM
--- NOTE | 2025-03-05 10:46 | EST_ITS ---
Patient Info Name: Ivet Smith Age: 60 years : 1965 Gender: Female Ht: 60 in Wt: 185 lbs BSA: 1.93 m2 HR: 66 bpm BP: 108 / 76 mmHg Exam Date: 03/05/2025 10:46 AM Patient Status: O Admit Date: 03/05/2025 Exam Type: CA stress test treadmill w NM A nuclear stress test was performed. Staff Referring Physician: Natalya Clark Attending Provider: Natalya Clark Exercise Technologist: Francisca Cummins Exercise Physician: Fredy Zavala DO Summary 1. 1. Negative Mati exercise stress test for ischemic ST changes by ECG criteria. However, patient achieved only 81% MPHR for age group which reduces sensitivity of the test. 2. 2. Reduced functional capacity, achieving 5.6 METs of workload. 3. 3. Appropriate HR response to exercise. 4. 4. Appropriate HR recovery at 1 minute post exercise. 5. 5. Nuclear scan to follow and will be reported separately. Please correlate with it. 6. 6. Patient informed of the above results. Protocol: Mati Stress ECG Details Stage: REST Duration (min): 1 min : 36 sec Speed (mph): 0.0 Grade (%): 0 HR (bpm): 63 SBP (mmHg): 108 DBP (mmHg): 76 METS: --- Stage: REST Duration (min): 10 min : 41 sec Speed (mph): 0.0 Grade (%): 0 HR (bpm): 97 SBP (mmHg): 108 DBP (mmHg): 76 METS: --- Stage: STAGE 1 Duration (min): 1 min : 0 sec Speed (mph): 1.7 Grade (%): 10 HR (bpm): 109 SBP (mmHg): 108 DBP (mmHg): 76 METS: --- Stage: STAGE 1 Duration (min): 2 min : 0 sec Speed (mph): 1.7 Grade (%): 10 HR (bpm): 113 SBP (mmHg): 108 DBP (mmHg): 76 METS: --- Stage: STAGE 1 Duration (min): 3 min : 0 sec Speed (mph): 1.7 Grade (%): 10 HR (bpm): 94 SBP (mmHg): 186 DBP (mmHg): 95 METS: --- Stage: STAGE 2 Duration (min): 0 min : 33 sec Speed (mph): 2.5 Grade (%): 12 HR (bpm): 100 SBP (mmHg): 186 DBP (mmHg): 95 METS: --- Stage: RECOVERY Duration (min): 0 min : 26 sec Speed (mph): 0.0 Grade (%): 0 HR (bpm): 118 SBP (mmHg): 186 DBP (mmHg): 95 METS: --- Stage: RECOVERY Duration (min): 1 min : 26 sec Speed (mph): 0.0 Grade (%): 0 HR (bpm): 118 SBP (mmHg): 186 DBP (mmHg): 95 METS: --- Stage: RECOVERY Duration (min): 2 min : 26 sec Speed (mph): 0.0 Grade (%): 0 HR (bpm): 99 SBP (mmHg): 186 DBP (mmHg): 95 METS: --- Stage: RECOVERY Duration (min): 3 min : 26 sec Speed (mph): 0.0 Grade (%): 0 HR (bpm): 91 SBP (mmHg): 202 DBP (mmHg): 96 METS: --- Stage: RECOVERY Duration (min): 4 min : 26 sec Speed (mph): 0.0 Grade (%): 0 HR (bpm): 85 SBP (mmHg): 202 DBP (mmHg): 96 METS: --- Stage: RECOVERY Duration (min): 5 min : 26 sec Speed (mph): 0.0 Grade (%): 0 HR (bpm): 83 SBP (mmHg): 171 DBP (mmHg): 95 METS: --- Stage: RECOVERY Duration (min): 6 min : 26 sec Speed (mph): 0.0 Grade (%): 0 HR (bpm): 82 SBP (mmHg): 171 DBP (mmHg): 95 METS: --- Stage: RECOVERY Duration (min): 7 min : 4 sec Speed (mph): 0.0 Grade (%): 0 HR (bpm): 89 SBP (mmHg): 143 DBP (mmHg): 93 METS: --- Rest HR: 97 bpm Peak HR: 128 bpm Rest Sys BP: 108 mmHg Peak Sys BP: 202 mmHg Max Pred HR: 158 bpm % Max Pred HR: 81 % Target HR: 134 bpm Max RPP: 25,856 bpm*mmHg Ervin Score: -3 Termination Reason: Maximal effort/unable to continue Cardiac Symptoms: Shortness of breath, Dizziness Max ST Seg Deviation: 1.30 mm Total Time: 3 min : 33 sec Rest Amado BP: 76 mmHg Peak Amado BP: 96 mmHg Angina Score: None Total METS: 5.6 Resting ECG Sinus rhythm. Stress ECG No ST changes. Arrhythmias Short run of atrial tachycardia immediately after exercise and HR increased at that time. Report Signatures
== END 2025-03-05 08:20 | disposition home or self-care (01) ==
PROVIDERS: PCP Nurse Practitioner Family; Visit Provider Nurse Practitioner Family
DX: R06.02 Shortness of breath (principal); R07.9 Chest pain, unspecified
CPT/HCPCS: 78452; 93017; A9502